=== PATIENT | female | born 1960 | race Caucasian/White ===

== ENCOUNTER 2017-04-11 11:05 | Emergency (ER) | payer BC ==
[~2017-04-11] VITALS: Ht 162.6 cm; Wt 93.0 kg
[~2017-04-11 11:05] MED LIST: ACEBUTCAFT PO; ACET325 PO; ALBIPROI INH; ALBU90OI INH; ALPR.25 PO; AMIT10 PO; ASPI81CH PO; ASPI81EC PO; ATEN50 PO; ATOR10 PO; Ativan0.5 MG PO; Cleocin HCl150 MG PO; DOCU100 PO; Esgic Tablet1 EACH PO; GLUC500 PO; GUAI600T33 PO; Glucosamine Sulfate PO; IBUP400 PO; IBUP800 PO; KETO10 PO; LISI10; LISI5 PO; LOSA25 PO; LOSARTAN-HCTZ1 EACH PO; LOVA20 PO; METO100ER PO; MULVITMIND PO; OXYACE5T PO; PRED20 PO; PROM25 PO; Percocet 5-3251 EACH PO; RXOXYACE PO; SERT25 PO; SIMV10; VERA120; VITS; XARELTO10 MG PO
[2017-04-11 11:27] LABS: BASOPHILS ABSOLUTE AUTO 0.07 K/mm3 (0.00-0.23); BASOPHILS PERCENT AUTO 1 % (0-2); EOSINOPHILS ABSOLUTE AUTO 0.21 K/mm3 (0.00-0.68); EOSINOPHILS PERCENT AUTO 3 % (0-6); Hematocrit 40.9 % (33.0-51.0); Hemoglobin 13.9 g/dL (11.5-16.0); IMMATURE GRAN ABSOLUTE AUTO 0.02 K/mm3 (0.00-0.10); IMMATURE GRAN PERCENT AUTO 0 % (0-1); LYMPHOCYTES ABSOLUTE AUTO 2.61 K/mm3 (0.84-5.20); LYMPHOCYTES PERCENT AUTO 40 % (21-46); MONOCYTES ABSOLUTE AUTO 0.47 K/mm3 (0.16-1.47); MONOCYTES PERCENT AUTO 7 % (4-13); Mean Corpuscular HGB 30.5 pg (26.0-34.0); Mean Corpuscular Volume 90 fL (80-100); Mean Platelet Volume 9.6 fL (9.1-12.4); NEUTROPHILS ABSOLUTE AUTO 3.22 K/mm3 (1.96-9.15); NEUTROPHILS PERCENT AUTO 49 % (41-73); Platelet Count 245 K/mm3 (150-400); RDW Coefficient Variation 12.1 % (11.7-14.2); RDW Standard Deviation 39.8 fL (35.1-46.3); Red Blood Cell Count 4.55 M/mm3 (3.80-5.20)
[2017-04-11 11:54] LABS: Alanine Aminotransfer (ALT/SGP 22 U/L (12-78); Albumin, Blood 3.4 g/dL (3.4-5.0); Albumin/Globulin Ratio 0.8 (0.8-1.8); Alk Phos 96 U/L (50-136); Anion Gap 7 mmol/L (6-16); Aspartate Aminotrans (AST/SGOT 12 U/L (12-37); Bilirubin, Total 0.3 mg/dL (0.1-1.0); Blood Urea Nitrogen 17 mg/dL (8-24); Bun/Creatinine Ratio 26.9 (12.0-20.0); CO2, Blood 30 mmol/L (21-32); Calcium, Blood 8.5 mg/dL (8.5-10.1); Chloride, Blood 104 mmol/L (98-108); Creatinine, Blood 0.63 mg/dL (0.40-1.00); Globulin, Blood 4.1 g/dL (2.2-4.0); Glomerular Filtration Rate >60 (60-); Glucose, Blood 116 mg/dL (70-99); Potassium, Blood 3.2 mmol/L (3.5-5.5); Sodium, Blood 141 mmol/L (136-145); Total Protein, Blood 7.5 g/dL (6.4-8.2); Troponin I <0.015 ng/mL (0.000-0.040)
== END 2017-04-11 12:34 | disposition home or self-care (01) ==
LOC: ER 11:05
PROVIDERS: Emergency Medicine
DX: R07.9 Chest pain, unspecified (principal); I10 Essential (primary) hypertension; E78.00 Pure hypercholesterolemia, unspecified; Z79.899 Other long term (current) drug therapy; Z88.0 Allergy status to penicillin; Z88.5 Allergy status to narcotic agent; Z88.8 Allergy status to other drugs, medicaments and biological substances
CPT/HCPCS: 36415; 71046; 80053; 84484; 85025; 85379; 93005; 93010; 99284

== ENCOUNTER → 2018-03-29 | Outpatient (CLI) | payer BC | END | disposition home or self-care (01) | LOC: PLD 07:12 → LAB SHORT 07:12 | DX: D11.0 Benign neoplasm of parotid gland (principal); Q18.0 Sinus, fistula and cyst of branchial cleft | CPT/HCPCS: 88173 ==

== ENCOUNTER → 2018-06-05 | Outpatient (CLI) | payer BC ==
[2018-06-05 11:20] LABS: Anion Gap 6 mmol/L (6-16); Blood Urea Nitrogen 19 mg/dL (8-24); CO2, Blood 30 mmol/L (21-32); Calcium, Blood 8.9 mg/dL (8.5-10.1); Chloride, Blood 106 mmol/L (98-108); Creatinine, Blood 0.66 mg/dL (0.40-1.00); Glomerular Filtration Rate >60 (60-); Glucose, Blood 84 mg/dL (70-99); Potassium, Blood 3.5 mmol/L (3.5-5.5); Sodium, Blood 142 mmol/L (136-145)
== END | disposition home or self-care (01) ==
LOC: LAB SHORT 11:00 → LAB 11:00
PROVIDERS: Otolaryngology
DX: D11.0 Benign neoplasm of parotid gland (principal); I10 Essential (primary) hypertension
CPT/HCPCS: 80048

== ENCOUNTER 2018-06-19 06:45 | Day surgery (SDC) | payer BC ==
[~2018-06-19] VITALS: Ht 162.6 cm; Wt 90.9 kg
[~2018-06-19 06:45] MED LIST changes: +ALBU90OI
--- NOTE | 2018-06-19 09:08 | NUR ---
06/19/18 0908 Stephanie Bradley 0.25CC EPI MIXED IN 50CC NACL=EPI SOLN 1:200,000. 2CC INJECTED.
--- NOTE | 2018-06-19 11:32 | NUR ---
06/19/18 1132 Josie Caldera PT UP TO RESTROOM, DAUGHTER ACCOMPANIED HER TO HELP.
== END 2018-06-19 12:29 | disposition home or self-care (01) ==
LOC: ORSCSDS 06:45
PROVIDERS: Otolaryngology
PROC: 0CBB0ZZ Excision of Right Parotid Duct, Open Approach (ICD-10-PCS; principal; 2018-06-19 08:15)
PROC: 0WB60ZZ Excision of Neck, Open Approach (ICD-10-PCS; principal; 2018-06-19 08:15)
DX: D11.0 Benign neoplasm of parotid gland (principal); Q18.0 Sinus, fistula and cyst of branchial cleft; I10 Essential (primary) hypertension; J44.9 Chronic obstructive pulmonary disease, unspecified; F17.210 Nicotine dependence, cigarettes, uncomplicated; E78.00 Pure hypercholesterolemia, unspecified; Z79.899 Other long term (current) drug therapy
CPT/HCPCS: 88305; 88307; A9270-GY; J0171; J1100; J2250; J2405; J2704; J3010; J7120

== ENCOUNTER 2020-12-15 05:04 | Emergency (ER) | payer BC, OTHER ==
[~2020-12-15] VITALS: Ht 162.6 cm; Wt 95.2 kg
[2020-12-15 06:40] LABS: Calcium, Ionized (POC) 0.98 mmol/L (1.10-1.46); Chloride (POC) 102 mmol/L (98-108); Creatinine (POC) 0.7 mg/dL (0.6-1.0); Glucose (ISTAT POC) 115 mg/dL (70-99); Hemoglobin (POC) 15.6 g/dL (12.0-16.0); Potassium (POC) 3.7 mmol/L (3.5-5.5); Sodium (POC) 143 mmol/L (135-148); Total CO2 (POC) 28 mmol/L (21-32)
[2020-12-15] MEDS ORDERED: KETO10 PO ×2 (07:28→07:39)
[2020-12-15] MEDS ORDERED: CYCL10 PO ×2 (07:28→07:39)
[2020-12-15] MEDS ORDERED: PRED20 PO ×2 (07:28→07:39)
== END 2020-12-15 07:38 | disposition home or self-care (01) ==
LOC: ER 05:04
PROVIDERS: Emergency Medicine
DX: M54.31 Sciatica, right side (principal); I10 Essential (primary) hypertension; E78.5 Hyperlipidemia, unspecified; J45.909 Unspecified asthma, uncomplicated; G43.909 Migraine, unspecified, not intractable, without status migrainosus; F17.210 Nicotine dependence, cigarettes, uncomplicated; Z88.0 Allergy status to penicillin; Z88.5 Allergy status to narcotic agent; Z88.8 Allergy status to other drugs, medicaments and biological substances; Z79.899 Other long term (current) drug therapy
CPT/HCPCS: 80047; 85014; 96372-59; 99283-25; A9270; J1885; J3010

== ENCOUNTER 2021-06-30 08:20 | Day surgery (SDC) | payer OTHER ==
[~2021-06-30] VITALS: Ht 162.6 cm; Wt 99.0 kg
[~2021-06-30 08:20] MED LIST changes: +CYCL10 PO; +NITR.4SL SL
--- NOTE | 2021-06-30 11:08 | NUR ---
06/30/21 1108 Enedelia Javed LATE ENTRY FOR TODAY RN IN TO EVALUATE PATIENT, RN QUESTIONED PATIENT ON THE LAST TIME SHE USED HER NITRO. PT STATES THAT IT WAS A NEW PRESCRIPTION AND SHE HAS NOT PICKED IT UP YET. RN QUESTIONED WHY SHE HAD THIS PRESCRIPTION. RN ASKED IF SHE HAD BEEN HAVING CHEST PAIN AND PT STATED IT WASN'T PAIN BUT FELT LIKE SOME ONE WAS SQUEEZING HER CHEST AND THAT SHE HAD SEEN HER PCP ON 06/29/21 AND WAS GIVEN THE PRESCRIPTION THEN AND WAS REFERRED TO CARDIOLOGY BUT HAS NOT SEEN A CEMENT FINISHER HELPER YET. PT STATED THAT SHE HAD IN HER PAST BEEN TAKEN TO THE EIGHT SECTION BLOWER BUT NOTHING WAS DONE AND THAT HER PCP STATED THAT THEY WOULD JUST TAKE HER DIRECTLY TO THE EIGHT SECTION BLOWER. RN REPORTED THIS TO DR. AUSTIN. DR AUSTIN WANTED TO TALK WITH THE PATIENT AND CANCELLED HER COLONOSCOPY. DR. AUSTIN CONTACTED HER OFFICE AND ASKED THEM TO REQUEST A CARDIOLOGY VISIT EF[facility].
== END 2021-06-30 09:50 | disposition home or self-care (01) ==
LOC: ORSCSDS 08:20
DX: R19.5 Other fecal abnormalities (principal); Z53.9 Procedure and treatment not carried out, unspecified reason
CPT/HCPCS: J2704; J7120

== ENCOUNTER 2021-07-27 05:20 | Day surgery (SDC) | payer OTHER ==
[~2021-07-27] VITALS: Ht 162.6 cm; Wt 99.0 kg
[~2021-07-27 05:20] MED LIST changes: -AMIT10 PO; +AMIT25 PO
--- NOTE | 2021-07-27 07:55 | NUR ---
pt to recovery room from lab. pt a&o. so at bedside.
--- NOTE | 2021-07-27 08:41 | NUR ---
TR BAND DEFLATION STARTED. RIGHT RADIAL ARTERIAL SITE SOFT NON TENDER, MILD BRUISING. ARM BOARD ON FOR SUPPORT. DISCHARGE INSTRUCTIONS REVIEWED. PAPERWORK PROVIDED. WILL CONTINUE TO MONITOR.
--- NOTE | 2021-07-27 09:15 | NUR ---
IV REMOVED WITH CATH INTACT, PRESSURE DRESSING APPLIED. TR BAND PREVIOUSLY REMOVED BY LEIDY MATHEW RN. RED CLOTH DOT DRESSING OVER SITE. PT DENIES PAIN. ARM BOARD ON FOR SUPPORT. PT VERBALIZED UNDERSTANDING OF DISCHARGE INSTRUCTIONS. ALL PERSONAL BELONGINGS SENT WITH PT. INFORMED THAT [facility]CTORS OFFICE WILL BE CALLING HER TO SCHEDULE FOLLOW UP APPOINTMENT. NO ACUTE DISTRESS NOTED AT TIME OF DISCHARGE.
== END 2021-07-27 09:30 | disposition home or self-care (01) ==
LOC: ECHO 05:20 → EDSTATUS 06:00 → ECHO 06:00 → MHTC 06:43 → ECHO 09:30
DX: I25.110 Atherosclerotic heart disease of native coronary artery with unstable angina pectoris (principal); I10 Essential (primary) hypertension; J44.9 Chronic obstructive pulmonary disease, unspecified; E78.5 Hyperlipidemia, unspecified; R73.03 Prediabetes; Z87.891 Personal history of nicotine dependence; Z88.0 Allergy status to penicillin; Z88.5 Allergy status to narcotic agent; Z79.899 Other long term (current) drug therapy
CPT/HCPCS: 76937; 93306; 93454; 99152; 99153; C1769; C1887; C1894; J1644; J2250; J3010; J7030; Q9967

== ENCOUNTER → 2022-09-24 | Outpatient (CLI) | payer OTHER ==
[2022-09-24 14:50] LABS: Stool Occult Bld Immuno 1 Negative (NEGATIVE)
== END | disposition home or self-care (01) ==
LOC: LAB 09:28 → LAB SHORT 09:28 → LAB FUT 09-21 12:00
PROVIDERS: Family Medicine
DX: Z04.9 Encounter for examination and observation for unspecified reason (principal); Z12.11 Encounter for screening for malignant neoplasm of colon; K21.00 Gastro-esophageal reflux disease with esophagitis, without bleeding; E66.9 Obesity, unspecified
CPT/HCPCS: 87338; G0328

== ENCOUNTER 2023-07-01 13:33 | Emergency (ER) | payer OTHER ==
[~2023-07-01] VITALS: Ht 160 cm; Wt 92.5 kg
[2023-07-01] MEDS ORDERED: NS 1,000 ML IV ONE (13:43)
[2023-07-01] MEDS ORDERED: NS 1,000 ML IV SCH (13:45)
[2023-07-01 13:51] LABS: BASOPHILS ABSOLUTE AUTO 0.02 K/mm3 (0.00-0.23); BASOPHILS PERCENT AUTO 1 % (0-2); EOSINOPHILS ABSOLUTE AUTO 0.03 K/mm3 (0.00-0.68); EOSINOPHILS PERCENT AUTO 1 % (0-6); Hematocrit 40.1 % (33.0-51.0); Hemoglobin 14.1 g/dL (11.5-16.0); IMMATURE GRAN ABSOLUTE AUTO 0.01 K/mm3 (0.00-0.10); IMMATURE GRAN PERCENT AUTO 0 % (0-1); LYMPHOCYTES ABSOLUTE AUTO 1.12 K/mm3 (0.84-5.20); LYMPHOCYTES PERCENT AUTO 32 % (21-46); MONOCYTES ABSOLUTE AUTO 0.23 K/mm3 (0.16-1.47); MONOCYTES PERCENT AUTO 7 % (4-13); Mean Corpuscular HGB 30.8 pg (26.0-34.0); Mean Corpuscular HGB Conc 35.2 g/dL (31.5-36.5); Mean Corpuscular Volume 88 fL (80-100); Mean Platelet Volume 9.2 fL (9.1-12.4); NEUTROPHILS ABSOLUTE AUTO 2.14 K/mm3 (1.96-9.15); NEUTROPHILS PERCENT AUTO 60 % (41-73); Platelet Count 221 K/mm3 (150-400); RDW Coefficient Variation 12.3 % (11.7-14.2); RDW Standard Deviation 39.4 fL (35.1-46.3); Red Blood Cell Count 4.58 M/mm3 (3.80-5.20); White Blood Cell Count 3.55 K/mm3 (4.00-11.30)
[2023-07-01] MEDS ORDERED: VERAPAMIL ER120 M1 PO (13:51)
[2023-07-01] MEDS ORDERED: LOSARTAN-HCTZ1 EAC6 PO (13:52)
[2023-07-01] MEDS ORDERED: PANTOPRAZOLE SO40 M2 PO (13:52)
[2023-07-01 14:09] LABS: Albumin, Blood 3.3 g/dL (3.4-5.0); Albumin/Globulin Ratio 0.9 (0.8-1.8); Bilirubin, Total 0.4 mg/dL (0.1-1.0); Bun/Creatinine Ratio 19.5 (12.0-20.0); Calcium, Blood 8.4 mg/dL (8.5-10.1); Creatinine, Blood 0.67 mg/dL (0.40-1.00); Globulin, Blood 3.7 g/dL (2.2-4.0); Potassium, Blood 3.1 mmol/L (3.5-5.5)
[2023-07-01] MEDS ORDERED: Ondansetron HCl 2 MG / ML 2ML Vial IV ONE (15:00)
[2023-07-01] MEDS ORDERED: Pantoprazole Sodium 40 MG Injection IV ONE (15:05)
[2023-07-01] MEDS ORDERED: Acetaminophen 500 MG Tab PO ONE (15:55)
[2023-07-01] MEDS ORDERED: Ibuprofen 600 MG Tab PO ONE (16:00)
[2023-07-01] MEDS ORDERED: Potassium Chloride 20 MEQ TabCR PO ONE (16:10)
[2023-07-01] MEDS ORDERED: Mag Hydrox/AL Hydrox/Simeth 30 ML UDC PO ONE (16:10)
[2023-07-01] MEDS ORDERED: ONDA4ODT MM (16:18)
[2023-07-01 16:34] VITALS: BP 118/74
== END 2023-07-01 16:34 | disposition home or self-care (01) ==
LOC: ER 13:33
PROVIDERS: Emergency Medicine
DX: R07.2 Precordial pain (principal); R11.2 Nausea with vomiting, unspecified; E87.6 Hypokalemia; Z88.0 Allergy status to penicillin; Z88.8 Allergy status to other drugs, medicaments and biological substances; Z88.5 Allergy status to narcotic agent; Z79.899 Other long term (current) drug therapy; I10 Essential (primary) hypertension; E78.5 Hyperlipidemia, unspecified; G43.909 Migraine, unspecified, not intractable, without status migrainosus; J45.909 Unspecified asthma, uncomplicated; F17.210 Nicotine dependence, cigarettes, uncomplicated
CPT/HCPCS: 80053; 84484; 85025; 93005; 93010; 96361; 96374; 96375; 99285-25; A9270; C9113; J2405; J7030

== ENCOUNTER 2023-09-27 21:58 | Observation (INO) | payer OTHER ==
[~2023-09-27] VITALS: Ht 160 cm; Wt 110.1 kg
[~2023-09-27 21:58] MED LIST changes: +LOSARTAN-HCTZ1 EAC6 PO; +ONDA4ODT MM; +PANTOPRAZOLE SO40 M2 PO; +VERAPAMIL ER120 M1 PO
[2023-09-27] MEDS ORDERED: NS 1,000 ML IV SCH (22:30)
[2023-09-27 23:04] LABS: BASOPHILS ABSOLUTE AUTO 0.04 K/mm3 (0.00-0.23); BASOPHILS PERCENT AUTO 1 % (0-2); EOSINOPHILS PERCENT AUTO 3 % (0-6); Hematocrit 41.7 % (33.0-51.0); Hemoglobin 14.3 g/dL (11.5-16.0); IMMATURE GRAN ABSOLUTE AUTO 0.02 K/mm3 (0.00-0.10); IMMATURE GRAN PERCENT AUTO 0 % (0-1); LYMPHOCYTES ABSOLUTE AUTO 2.38 K/mm3 (0.84-5.20); LYMPHOCYTES PERCENT AUTO 34 % (21-46); MONOCYTES ABSOLUTE AUTO 0.49 K/mm3 (0.16-1.47); MONOCYTES PERCENT AUTO 7 % (4-13); Mean Corpuscular HGB 31.2 pg (26.0-34.0); Mean Corpuscular HGB Conc 34.3 g/dL (31.5-36.5); Mean Corpuscular Volume 91 fL (80-100); Mean Platelet Volume 9.6 fL (9.1-12.4); NEUTROPHILS ABSOLUTE AUTO 3.97 K/mm3 (1.96-9.15); NEUTROPHILS PERCENT AUTO 56 % (41-73); Platelet Count 233 K/mm3 (150-400); RDW Coefficient Variation 11.9 % (11.7-14.2); RDW Standard Deviation 39.7 fL (35.1-46.3); Red Blood Cell Count 4.58 M/mm3 (3.80-5.20)
[2023-09-27 23:21] LABS: D-Dimer, Quantitative 0.41 mg/L FEU (0.00-0.52); International Normalized Ratio 1.1; Prothrombin Time Results 11.7 Sec (9.7-11.5)
[2023-09-27 23:31] LABS: Albumin, Blood 3.7 g/dL (3.4-5.0); Albumin/Globulin Ratio 0.9 (0.8-1.8); Bilirubin, Total 0.3 mg/dL (0.1-1.0); Bun/Creatinine Ratio 24.2 (12.0-20.0); Calcium, Blood 8.6 mg/dL (8.5-10.1); Creatinine, Blood 0.87 mg/dL (0.40-1.00); Globulin, Blood 4.3 g/dL (2.2-4.0); Magnesium, Blood 1.9 mg/dL (1.6-2.4); Potassium, Blood 3.1 mmol/L (3.5-5.5); Thyroid Stimulating Hormone 3.39 uIU/mL (0.360-4.800)
[2023-09-27] MEDS ORDERED: Potassium Chloride 20 MEQ/15 ML UDC PO ONE (23:40)
[2023-09-28] MEDS ORDERED: Acetaminophen 325 MG TABLET PO PRN (00:05)
[2023-09-28] MEDS ORDERED: Mag Sulfate 1 GM/D5% 100ML 100 ML IV STA (00:13)
[2023-09-28 01:03] VITALS: BP 131/89
--- NOTE | 2023-09-28 02:57 | NUR ---
ADMIT NOTE 63 YR OLD FEMALE ADMITTED TO FLOOR FROM THE ED WITH DX OF PALPITATIONS. ED RN REPORTED PT HAD BEEN HAVING HEART FLUTTERING, SHORT EPISODES OF SVT AND PALPITATOINS. WAS ADMITTED TO FLOOR WITH POSSIBLE STRESS TEST IN THE AM AND HAS A ZIO PATCH ON CHEST TONIGHT. HX OF HTN, HLD, ASTHMA AND MIGRAINES. ALERT TO QUESTOINS ASKED. DENIES CHEST PAIN. MED TELE SINUS RHYTHM. VOICED FORMER SMOKER, BUT DENIES CURRENT USE. ORIENTD TO USE OF CALL LIGHT AND BED CONTROL. AT BEDSIDE FOR SUPPORT. CALL LIGHT IN REACH. WILL CONTINUE TO MONITOR
--- NOTE | 2023-09-28 03:29 | NUR ---
BARREL PLANER SUMMARY ADMITTED TO FLOOR EARLIER FROM THE ED WITH DX OF PALPITATIONS. HAS DENIED CHEST PAIN OR SOB WHEN ASKED THROUGH SHIFT. ALERT AND ORIENTED. MED TELE SR. HOB ELEVATED. ROOM AIR. FAMILY HAS BEEN AT BEDSIDE FOR SUPPORT. HAS BEEN RESTING QUIETLY WITH FEW INTERRUPTIONS. ABLE TO REPOSITION SELF IN BED, UP AD DONTAE. CALL LIGHT IN REACH, RAILS UP X 2 AND BED IN LOW POSITION FOR SAFETY. BP WAS ELEVATED PRIOR TO COMING TO FLOOR, HAS TRENDED DOWNWARD TO WNL AT THIS TIME. WILL CONT TO MONITOR
[2023-09-28 05:23] VITALS: BP 129/58
[2023-09-28 06:16] LABS: BASOPHILS ABSOLUTE AUTO 0.04 K/mm3 (0.00-0.23); BASOPHILS PERCENT AUTO 1 % (0-2); EOSINOPHILS ABSOLUTE AUTO 0.24 K/mm3 (0.00-0.68); EOSINOPHILS PERCENT AUTO 4 % (0-6); Hematocrit 39.9 % (33.0-51.0); Hemoglobin 13.7 g/dL (11.5-16.0); IMMATURE GRAN ABSOLUTE AUTO 0.02 K/mm3 (0.00-0.10); IMMATURE GRAN PERCENT AUTO 0 % (0-1); LYMPHOCYTES ABSOLUTE AUTO 1.99 K/mm3 (0.84-5.20); LYMPHOCYTES PERCENT AUTO 34 % (21-46); MONOCYTES ABSOLUTE AUTO 0.37 K/mm3 (0.16-1.47); MONOCYTES PERCENT AUTO 6 % (4-13); Mean Corpuscular HGB 31.3 pg (26.0-34.0); Mean Corpuscular HGB Conc 34.3 g/dL (31.5-36.5); Mean Corpuscular Volume 91 fL (80-100); Mean Platelet Volume 10.1 fL (9.1-12.4); NEUTROPHILS ABSOLUTE AUTO 3.15 K/mm3 (1.96-9.15); NEUTROPHILS PERCENT AUTO 54 % (41-73); Platelet Count 237 K/mm3 (150-400); RDW Coefficient Variation 11.9 % (11.7-14.2); RDW Standard Deviation 39.6 fL (35.1-46.3); Red Blood Cell Count 4.38 M/mm3 (3.80-5.20); White Blood Cell Count 5.81 K/mm3 (4.00-11.30)
[2023-09-28 06:44] LABS: Bun/Creatinine Ratio 30.8 (12.0-20.0); Calcium, Blood 8.4 mg/dL (8.5-10.1); Creatinine, Blood 0.62 mg/dL (0.40-1.00); Magnesium, Blood 2.1 mg/dL (1.6-2.4); Potassium, Blood 3.2 mmol/L (3.5-5.5)
[2023-09-28 07:32] VITALS: BP 123/76
[2023-09-28] MEDS ORDERED: Verapamil HCL 120 MG TABCR PO SCH (08:00)
[2023-09-28] MEDS ORDERED: Potassium Chloride 20 MEQ TabCR PO SCH (08:00)
[2023-09-28] MEDS ORDERED: Aspirin 81 MG Chew PO SCH (09:00)
[2023-09-28] MEDS ORDERED: Enoxaparin 40 MG/0.4 ML SYR SC SCH (09:00)
[2023-09-28] MEDS ORDERED: Metoprolol Succinate 50 MG TABCR PO SCH (09:00)
--- NOTE | 2023-09-28 10:56 | NUR ---
Pt is awake in bed and welcomes my visit. Family member is at bedside. Pt. is pleasant and verbalized an expectation that after the results of her echo she may be discharged home. Seek to normalize the Pt. exerience. Facilitate a short life review. Both Pt. and present familiy member verbalize gratitude for the spiritual care visit.
[2023-09-28] MEDS ORDERED: Potassium Chloride 20 MEQ TabCR PO ONE (12:00)
[2023-09-28] MEDS ORDERED: ALPR.5 PO (12:16)
[2023-09-28 13:49] LABS: Bun/Creatinine Ratio 22.5 (12.0-20.0); Calcium, Blood 8.2 mg/dL (8.5-10.1); Creatinine, Blood 0.67 mg/dL (0.40-1.00); Potassium, Blood 3.6 mmol/L (3.5-5.5)
[2023-09-28 15:37] VITALS: BP 132/79
--- NOTE | 2023-09-28 17:27 | NUR ---
SUMMARY- PT A/O X4, INDEPENDANT IN ROOM. DENIES ANY CHEST PALP, CP OR PRESURE THIS SHIFT. AWAITING ECHO RESULTS. TOLERATING FOOD AND FLUIDS. KCL SUPP BROUGHT KCL LEVELS TO NORMAL LEVEL. WILL REPORT TO NOC RN
[2023-09-28] MEDS ORDERED: LOSA50 PO (18:18)
--- NOTE | 2023-09-28 19:12 | NUR ---
SUMMARY- PT'S ECHO COMPLETE/"NORMAL"- PT DC'D WITH INSTRUCTIONS. IS INCTRUCTED TO CONT WITH ZIO PATCH AND F/U WITH TENA AND CARDIO. PT DECLINED WHEELCHAIR, AMBULATED OUT TO PRIVATE CAR WITH 2 DAUGHTERS TO ESCORT.
[2023-09-28] MEDS ORDERED: Amitriptyline HCl 25 MG Tab PO SCH (21:00)
[2023-09-28] MEDS ORDERED: Miconazole Nitrate 2% 85 GM PWD TOP SCH (21:00)
== END 2023-09-28 18:40 | disposition home or self-care (01) ==
LOC: ER 21:58 → MEDS 21:59 → ER 09-28 00:03 → MEDS 09-28 00:54
PROVIDERS: Emergency Medicine; Family Medicine; Physician Assistant; ADMIT Student in an Organized Health Care Education/Training Program
DX: I47.10 Supraventricular tachycardia, unspecified (principal); E87.6 Hypokalemia; I10 Essential (primary) hypertension; G43.909 Migraine, unspecified, not intractable, without status migrainosus; J45.909 Unspecified asthma, uncomplicated; F17.210 Nicotine dependence, cigarettes, uncomplicated; E86.0 Dehydration; Z88.8 Allergy status to other drugs, medicaments and biological substances; Z88.0 Allergy status to penicillin
CPT/HCPCS: 36415; 71046; 80048; 80053; 83605; 83690; 83735; 84443; 84484; 85025; 85379; 85610; 85730; 93306; 96360; 96361; 96374; 99285-25; A9270; G0378; J3475; J7030

== ENCOUNTER → 2024-01-07 | Outpatient (CLI) | payer OTHER ==
[~2024-01-07] MED LIST changes: +ALPR.5 PO; +LOSA50 PO
== END ==
LOC: LAB SHORT 09:55 → LAB 09:55
DX: R39.15 Urgency of urination (principal)
CPT/HCPCS: 87086